=== PATIENT | female | born 1975 | race Caucasian/White ===

== ENCOUNTER 2018-08-09 10:04 | Emergency (ER) | payer MEDICAID ==
[~2018-08-09] VITALS: Ht 154.9 cm; Wt 79.4 kg
[~2018-08-09 10:04] MED LIST: GLU5 PO; GLYBURIDE-METFORMIN PO; IBUPROFEN400 MG PO; JANUMET1 TA1 PO; METFORMIN HCL1000 MG PO; ZES10 PO
[2018-08-09 10:08] VITALS: Ht 154.9 cm; Wt 79.4 kg
[2018-08-09 11:21] VITALS: BP 134/83
== END 2018-08-09 11:21 | disposition home or self-care (01) ==
LOC: ED 10:04
DX: L03.311 Cellulitis of abdominal wall (principal)
CPT/HCPCS: J1885; J2001

== ENCOUNTER 2018-08-11 21:03 | Emergency (ER) | payer MEDICAID ==
[~2018-08-11] VITALS: Ht 154.9 cm; Wt 80.7 kg
[2018-08-11 21:08] VITALS: Ht 154.9 cm; Wt 80.7 kg
[2018-08-11 22:11] VITALS: BP 129/64
== END 2018-08-11 22:11 | disposition home or self-care (01) ==
LOC: ED 21:03
DX: L02.211 Cutaneous abscess of abdominal wall (principal); E11.9 Type 2 diabetes mellitus without complications